=== PATIENT | female | born 1965 | race Caucasian/White ===

== ENCOUNTER 2016-07-06 16:35 | Outpatient (CLI) | payer OTHER | END 2016-07-06 16:36 | disposition home or self-care (01) | DX: E03.9 Hypothyroidism, unspecified (principal) ==

== ENCOUNTER 2016-12-05 15:57 | Outpatient (CLI) | payer OTHER ==
--- NOTE | 2016-12-06 16:46 | Mammography Report ---
DIGITAL SCREENING MAMMOGRAM: 12/05/2016 CLINICAL INDICATION: A 51-year-old nulliparous patient for screening. COMPARISON: 09/2015, 08/2014, 10/2012, 09/2011, 06/2010, 06/2009, 10/2006 TECHNIQUE: Routine CC and MLO projections were obtained of the breasts as well as bilateral laterall y exaggerated craniocaudal views. FINDINGS: The breasts again demonstrate heterogeneously dense fibroglandular parenchyma bilaterally. Coarse and punctate, typically benign calcifications are present. No suspicious masses, clustered microcalcifications, or regions of architectural distortion are identified. IMPRESSION: BENIGN FINDINGS. RECOMMENDATION: Routine annual screening unless otherwise clinically indicated. BIRADS CATEGORY 2 - BENIGN FINDINGS. STANDARD QUALIFYING STATEMENTS 1. This examination was reviewed with the aid of Computer-Aided Detection (CAD). 2. A negative or benign imaging report should not delay biopsy if clinically suspicious findings are present. Consider surgical consultation if warranted. More than 5% of cancers are not identified by i maging. 3. Dense breasts may obscure an underlying neoplasm. JOB #: [id number] EXT JOB #:[id number]
== END 2016-12-05 15:58 | disposition home or self-care (01) ==
LOC: DI.N 15:57
PROVIDERS: ATTEND Physician Assistant Medical
DX: Z12.31 Encounter for screening mammogram for malignant neoplasm of breast (principal)
CPT/HCPCS: 77067

== ENCOUNTER 2017-04-20 13:52 | Outpatient (CLI) | payer OTHER ==
--- NOTE | 2017-04-21 07:47 | Ultrasound Report ---
LEFT BREAST ULTRASOUND: 04/20/2017 CLINICAL INDICATION: Palpable abnormality left outer breast. TECHNIQUE: Real-time scanning was performed with medical collections representative static images obtained. FINDINGS: The patient reports that the palpable abnormality has resolved. The region identified by the patient was scanned. There is heterogeneous parenchyma in the 3 o'clock position, 4 cm from the nipple, in the region identified by the patient. No suspicious solid mass is identified. IMPRESSION: Negative examination. RECOMMENDATIONS: Routine annual screening, next due in November 2017, unless otherwise clinically indicated. BIRADS category 1 negative. TD: 04/20/2017 20:27 MTDD
--- NOTE | 2017-04-21 07:51 | Mammography Report ---
DIGITAL DIAGNOSTIC LEFT MAMMOGRAM: 04/20/2017 CLINICAL INDICATION: Palpable abnormality left breast. The patient reports that the palpable abnormality has resolved. A marker was placed in the region where she previously felt the palpable abnormality. TECHNIQUE: Left CC, MLO, true lateral, laterally exaggerated craniocaudal views. COMPARISON: 12/05/2016, 10/14/2015, 09/05/2014, 11/13/2012, 10/04/2011, 2010, 06/15/2009. The left breast demonstrates heterogeneously dense fibroglandular parenchyma. Coarse and punctate, typically benign calcifications are present. No suspicious masses, clustered microcalcifications, or regions of architectural distortion are identified. Specifically, no mammographic abnormality is appreciated at the 3 o'clock position of the left breast, at the site indicated by the marker. Please also refer to left breast ultrasound of the same day. IMPRESSION: Benign findings. RECOMMENDATIONS: Routine annual screening, next due in November 2017, unless otherwise clinically indicated. BIRADS category 2 benign findings. STANDARD QUALIFYING STATEMENTS 1. This examination was reviewed with the aid of Computed-Aided Detection (CAD) . 2. A negative or benign imaging report should not delay biopsy if clinically suspicious findings are present. Consider surgical consultation if warranted. More than 5% of cancers are not identified by imaging. 3. Dense breasts may obscure an underlying neoplasm. TD: 04/20/2017 20:33 LOY
== END 2017-04-20 13:53 | disposition home or self-care (01) ==
LOC: DI 13:52
PROVIDERS: ATTEND Physician Assistant Medical
DX: N63.20 Unspecified lump in the left breast, unspecified quadrant (principal)
CPT/HCPCS: 76642

== ENCOUNTER 2018-04-27 10:10 | Outpatient (CLI) | payer OTHER ==
--- NOTE | 2018-04-30 09:18 | Mammography Report ---
Reason: SCREENING MAMMO Procedure Date: 04/27/2018 Accession Number: [id number] / [id number] Procedure: MGN - Screening Mammo Dig Bilat CPT Code: FULL RESULT: EXAM: Screening Mammo Dig Bilat DATE: 04/27/2018 10:27 AM CLINICAL HISTORY: Screening encounter. History of nulliparity. Family history of breast cancer in a paternal grandmother in her 60s. TECHNIQUE: Bilateral CC, laterally exaggerated CC, MLO views were obtained. COMPARISON: 04/20/2017 through 11/13/2012. FINDINGS: The breasts demonstrate heterogeneously dense fibroglandular parenchyma bilaterally. There are typically benign coarse calcifications. No suspicious masses, clustered microcalcifications, or regions of architectural distortion are identified. IMPRESSION: Benign findings RECOMMENDATION: Routine annual screening unless otherwise clinically indicated. BIRADS CATEGORY 2: Benign findings STANDARD QUALIFYING STATEMENTS: 1. This examination was reviewed with the aid of Computer-Aided Detection (CAD). 2. A negative or benign imaging report should not preclude biopsy if clinically suspicious findings are present. 3. Dense breasts may obscure an underlying neoplasm. 4. This examination was reviewed without the aid of 3D breast imaging (tomosynthesis).
== END 2018-04-27 10:11 | disposition home or self-care (01) ==
LOC: DI.N 10:10
DX: Z12.31 Encounter for screening mammogram for malignant neoplasm of breast (principal); Z80.3 Family history of malignant neoplasm of breast
CPT/HCPCS: 77067

== ENCOUNTER 2019-01-07 09:15 | Outpatient (CLI) | payer OTHER ==
--- NOTE | 2019-01-08 12:43 | XRAY Report ---
Reason: FRACTURE OF SUPERIOR RIM OF UNSPECIFIED PUBIS, INI Procedure Date: 01/07/2019 Accession Number: [id number] / [id number] Procedure: XRN - Pelvis 3 View CPT Code: FULL RESULT: EXAM: PELVIS RADIOGRAPHY EXAM DATE: 01/07/2019 09:37 AM. CLINICAL HISTORY: Fracture of superior rim of unspecified pubis. COMPARISON: None. TECHNIQUE: 1 view. FINDINGS: Bones: Fracture of the left pubis symphysis is noted. There is sclerosis. Slight irregularity of the left sacral ala noted, possibly a fracture. There is sclerosis. Joints: Normal alignment of both of the hip joints. Degenerative change lower lumbar spine. No dislocation. Degenerative changes at the site of sacralization of the left L5 transverse process noted. Soft Tissues: Normal. No soft tissue swelling. IMPRESSION: 1. Pubis symphysis left-sided fracture with areas of sclerosis possibly due to healing. 2. Sclerosis and irregularity of the left sacral ala, possibly related to fracture. RADIA
== END 2019-01-07 09:16 | disposition home or self-care (01) ==
LOC: DI.N 09:15
PROVIDERS: ATTEND Nurse Practitioner
DX: S32.502A Unspecified fracture of left pubis, initial encounter for closed fracture (principal)
CPT/HCPCS: 72190

== ENCOUNTER 2019-04-04 14:16 | Outpatient (CLI) | payer OTHER ==
--- NOTE | 2019-04-08 10:25 | Mammography Report ---
Reason: ROUTINE MAMMO Procedure Date: 04/04/2019 Accession Number: [id number] / [id number] Procedure: MGN - Screening Mammo Dig Bilat CPT Code: Final Report FULL RESULT: EXAM: Screening Mammo Dig Bilat DATE: 04/04/2019 2:35 PM CLINICAL HISTORY: Screening encounter. History of nulliparity. TECHNIQUE: (B) - Bilateral CC, laterally exaggerated CC, MLO views were obtained. COMPARISON: 04/19/2018 through 11/13/2012. PARENCHYMAL PATTERN: (D) - The breast(s) demonstrate(s) heterogeneously dense fibroglandular parenchyma. FINDINGS: There are no suspicious masses, calcifications, or areas of distortion. IMPRESSION: Negative examination. BI-RADS category 1. RECOMMENDATION: (ANNUAL) - Recommend routine annual screening mammography. BI-RADS CATEGORY: (1) - Negative. STANDARD QUALIFYING STATEMENTS: 1. This examination was not reviewed with the aid of Computer-Aided Detection (CAD). 2. A negative or benign imaging report should not preclude biopsy if clinically suspicious findings are present. 3. Dense breasts may obscure an underlying neoplasm. 4. This examination was reviewed without the aid of 3D breast imaging (tomosynthesis).
== END 2019-04-04 14:17 | disposition home or self-care (01) ==
LOC: DI.N 14:16
DX: Z12.31 Encounter for screening mammogram for malignant neoplasm of breast (principal)
CPT/HCPCS: 77067

== ENCOUNTER 2021-04-20 11:13 | Outpatient (CLI) | payer OTHER ==
--- NOTE | 2021-04-21 14:05 | Mammography Report ---
BILATERAL DIGITAL SCREENING MAMMOGRAM 3D/2D: 04/20/2021 CLINICAL: Routine screening. Comparison is made to exams dated: 04/04/2019 mammogram, 04/27/2018 mammogram, 04/20/2017 ultrasound, 04/20/2017 mammogram, 12/05/2016 mammogram, and 10/14/2015 mammogram - [facility]. T he tissue of both breasts is heterogeneously dense. This may lower the sensitivity of mammography. No significant masses, calcifications, or other findings are seen in either breast. There has been no significant interval change. IMPRESSION: NEGATIVE There is no mammographic evidence of malignancy. A 1 year screening mammogram is recommended. This exam was interpreted at Station ID: [id number]. NOTE: For mammograms, a report in lay terms will be sent to the patient. Approximately 15% of breast malignancies will not be visualized mammographically. In the management of a palpable breast mass, a negative mammogram must not discourage biopsy of a clinically suspicious lesion. Electronically Signed By: Brayden Almonte M.D. ddp/penrad:04/20/2021 16:28:19 ACR BI-RADS Category 1: Negative 3341F PARENCHYMAL PATTERN: (D) - The breast(s) demonstrate(s) heterogeneously dense fibroglandular gabrielle hernandez. BI-RADS CATEGORY: (1) - 1 RECOMMENDATION: (ANNUAL) - Recommend routine annual screening mammography. [id number] 1 year screening LATERALITY: (B)
== END 2021-04-20 11:14 | disposition home or self-care (01) ==
LOC: DI.N 11:13
PROVIDERS: ATTEND Nurse Practitioner
DX: Z12.31 Encounter for screening mammogram for malignant neoplasm of breast (principal)

== ENCOUNTER 2022-04-07 15:25 | Outpatient (CLI) | payer OTHER ==
--- NOTE | 2022-04-08 10:37 | Mammography Report ---
BILATERAL DIGITAL SCREENING MAMMOGRAM 3D/2D: 04/07/2022 CLINICAL: Routine screening. Comparison is made to exams dated: 04/20/2021 mammogram, 04/04/2019 mammogram, 04/27/2018 mammogram, 04/20/2017 ultrasound, 04/20/2017 mammogram, and 12/05/2016 mammogram - [facility]. Both breasts are heterogeneously dense, which may obscure small masses (category c / 51-75% glandular tissue). No significant masses, calcifications, or other findings are seen in either breast. There has been no significant interval change. IMPRESSION: NEGATIVE There is no mammographic evidence of malignancy. A 1 year screening mammogram is recommended. Based on Tyrer-Cuzick model (a risk assessment model), the patient's lifetime risk is 20.9% and her 1 0 year risk is 7.6%. If a patient has an elevated risk, a more comprehensive evaluation should be con sidered and/or a referral to a genetic counselor. The [place] [employer], [employer], and NCCN Guidelines advise the consideration of Breast MRI as an adjunct to screening mammog sina in patients whose "Lifetime risk to develop breast cancer" is 20% or higher. This exam was interpreted at Station ID: [id number]. NOTE: For mammograms, a report in lay terms will be sent to the patient. Approximately 15% of breast malignancies will not be visualized mammographically. In the management of a palpable breast mass, a negative mammogram must not discourage biopsy of a clinically suspicious lesion. Electronically Signed By: Vilma hassan/jen:04/08/2022 09:14:34 ACR BI-RADS Category 1: Negative 3341F PARENCHYMAL PATTERN: (D) - The breast(s) demonstrate(s) heterogeneously dense fibroglandular parenchy ma. BI-RADS CATEGORY: (1) - 1 RECOMMENDATION: (ANNUAL) - Recommend routine annual screening mammography. [id number] 1 year screening LATERALITY: (B)
== END 2022-04-07 15:26 | disposition home or self-care (01) ==
LOC: DI.N 15:25
PROVIDERS: ATTEND Nurse Practitioner
DX: Z12.31 Encounter for screening mammogram for malignant neoplasm of breast (principal)

== ENCOUNTER 2023-05-25 14:56 | Outpatient (CLI) | payer OTHER ==
--- NOTE | 2023-05-26 11:44 | Mammography Report ---
BILATERAL DIGITAL SCREENING MAMMOGRAM 3D/2D: 05/25/2023 CLINICAL: Routine screening. Comparison is made to exams dated: 04/07/2022 mammogram, 04/20/2021 mammogram, 04/04/2019 mammogram, 06/28/2017 mammogram, 04/20/2017 ultrasound, and 04/20/2017 mammogram - [facility]. There are scattered areas of fibroglandular density in both breasts (category b / 25%-50% glandular t issue). No significant masses, calcifications, or other findings are seen in either breast. There has been no significant interval change. IMPRESSION: NEGATIVE There is no mammographic evidence of malignancy. A 1 year screening mammogram is recommended. Based on the Tyrer Cuzick model (a risk assessment model) the patient's lifetime risk is 14.0% and he r 10 year risk is 5.3%. According to the ACR, ACS, and NCCN guidelines, an annual breast MRI exam hank ng with mammogram is recommended if the patients lifetime risk is 20% or greater. This exam was interpreted at Station ID: [id number]. NOTE: For mammograms, a report in lay terms will be sent to the patient. Approximately 15% of breast malignancies will not be visualized mammographically. In the management of a palpable breast mass, a negative mammogram must not discourage biopsy of a clinically suspicious lesion. Electronically Signed By: Jose David brown/jen:05/26/2023 07:07:17 letter sent: No_Letter ACR BI-RADS Category 1: Negative 3341F PARENCHYMAL PATTERN: (A) - The breast(s) demonstrate(s) scattered fibroglandular densities. BI-RADS CATEGORY: (1) - 1 Mammogram [id number] 1 year screening LATERALITY: (B)
== END 2023-05-25 14:57 | disposition home or self-care (01) ==
LOC: DI.N 14:56
DX: Z12.31 Encounter for screening mammogram for malignant neoplasm of breast (principal); R92.323 Mammographic fibroglandular density, bilateral breasts